=== PATIENT | male | born 1985 | race Two or more races ===

== ENCOUNTER 2021-04-26 09:29 | Emergency (ER) | payer MEDICAID, OTHER ==
[~2021-04-26] VITALS: Ht 170.2 cm; Wt 88.9 kg
[2021-04-26 09:59] VITALS: BP 119/89
[2021-04-26] MEDS ORDERED: KETOROLAC TROMETH 60MG/2ML VIAL IM ONE (10:00)
[2021-04-26] MEDS ORDERED: METH750T22 PO (10:19)
[2021-04-26] MEDS ORDERED: IBUP800T27 PO (10:19)
[2021-04-26] MEDS ORDERED: HYDROcodone-ACET 10/325MG TAB ONE (10:46)
[2021-04-26] MEDS ORDERED: HYDROcodone-ACET 10/325MG TAB PO ONE (11:00)
== END 2021-04-26 11:32 | disposition home or self-care (01) ==
LOC: ER 09:29
DX: S39.012A Strain of muscle, fascia and tendon of lower back, initial encounter (principal); M62.838 Other muscle spasm; X50.0XXA Overexertion from strenuous movement or load, initial encounter; Y93.89 Activity, other specified; Y92.89 Other specified places as the place of occurrence of the external cause; Y99.8 Other external cause status
CPT/HCPCS: 96372; 99283; J1885